=== PATIENT | female | born 1990 | race Caucasian/White ===

== ENCOUNTER 2018-09-08 02:21 | Emergency (ER) | payer OTHER ==
--- NOTE | 2018-09-08 02:32 | EDPHY ---
H & P Stated Complaint: Throat swelling on drive to OR, increasing trouble swallowing Time Seen by Provider: 09/08/18 02:32 HPI/ROS: HPI CHIEF COMPLAINT: Tongue swelling, throat swelling. HISTORY OF PRESENT ILLNESS: Patient is a 27-year-old female, otherwise healthy , presents emergency room stating an hour ago she was sleeping and felt as if her tongue was swollen throat was swollen. She denies any trouble breathing. She does report that her tongue feels big and causes or difficulty swallowing. She reports she had this 5 days ago. It went away on its own. She is unsure what is causing it. She arrives to the emergency room in no acute distress. Denies any trouble breathing. On exam her vital signs are stable, additionally there is no evidence of tongue swelling or posterior pharynx swelling. No stridor. No trismus. Past Medical History: Denies significant medical history Past Surgical History: Denies significant surgical history Social History: Denies drugs alcohol tobacco. Visiting from [place]. Family History: Noncontributory ROS REVIEW OF SYSTEMS: 10 Systems were reviewed and negative with the exception of the elements mentioned in the history of present illness. Exam Constitutional triage nursing summary reviewed, vital signs reviewed, awake/ alert. Eyes normal conjunctivae and sclera, EOMI, PERRLA. HENT posterior pharynx unremarkable, no significant swelling, no tongue swelling, no sublingual swelling, no signs of [employer] or RPA. No stridor. No change in phonation. moist mucus membranes, no epistaxis, neck supple/ no meningismus, no raccoon eyes. Respiratory clear to auscultation bilaterally, normal breath sounds, no respiratory distress, no wheezing. Cardiovascular rate normal, regular rhythm, no murmur, no edema, distal pulses normal. Gastrointestinal soft, non-tender, no rebound, no guarding, normal bowel sounds, no distension, no pulsatile mass. Genitourinary no CVA tenderness. Musculoskeletal no midline vertebral tenderness, full range of motion, no calf swelling, no tenderness of extremities, no meningismus, good pulses, neurovascularly intact. Skin pink, warm, & dry, no rash, skin atraumatic. Neurologic awake, alert and oriented x 3, AAOx3, moves all 4 extremities equally, motor intact, sensory intact, CN II-XII intact, normal cerebellar, normal vision, normal speech. Psychiatric normal mood/affect. Heme/Lymph/Immune no lymphadenopathy. Differential Diagnosis: Includes but is not limited to and in no particular order allergic reaction, angioedema, anxiety. Medical Decision Making: Plan for this patient IV establishment with IV Benadryl, IV Decadron, IV Pepcid, close monitoring. On exam I do not appreciate any significant oropharynx or posterior pharynx swelling. No stridor. Re-evaluation: 0519: Patient re-evaluated this time resting comfortably. No acute distress. Able swallow appropriately. No stridor. No trouble breathing. Patient is feeling much better. Goes no visible significant swelling on exam. No stridor no drooling. We discussed return precautions return to the emergency room if worsening symptoms questions or concerns. Additionally recommend following up with ENT. Source: Patient - Personal History LMP (Females 10-55): 22-28 Days Ago Current Tetanus Diphtheria and Acellular Pertussis (TDAP): Yes - Medical/Surgical History Hx Asthma: No Hx Chronic Respiratory Disease: No Hx Diabetes: No Hx Cardiac Disease: No Hx Renal Disease: No Hx Cirrhosis: No Hx Alcoholism: No Hx HIV/AIDS: No Hx Splenectomy or Spleen Trauma: No Other PMH: Denies - Social History Smoking Status: Never smoked Constitutional: Initial Vital Signs Temperature (C) 36.9 C 09/08/18 02:26 Heart Rate 93 09/08/18 02:26 Respiratory Rate 18 09/08/18 02:26 Blood Pressure 154/93 H 09/08/18 02:26 O2 Sat (%) 97 09/08/18 02:26 O2 Delivery Mode Room Air Allergies/Adverse Reactions: No Known Allergies Allergy (Unverified 09/08/18 02:28) Home Medications: Medication Instructions Recorded EPINEPHrine [Epipen 0.3 MG] 0.3 mg IM ONCE #2 syr 09/08/18 Famotidine [Pepcid 20 MG (*)] 20 mg PO BID #6 tab 09/08/18 diphenhydrAMINE [Benadryl 25 MG 25 mg PO BID #6 tab 09/08/18 (*)] predniSONE 60 mg PO DAILY #9 tab 09/08/18 Medical Decision Making - Data Points Laboratory Results: Laboratory Results 09/08/18 02:31 09/08/18 02:31 09/08/18 09/08/18 02:31 02:31 WBC 6.58 10^3/uL 10^3/uL (3.80-9.50) RBC 4.52 10^6/uL 10^6/uL (4.18-5.33) Hgb 15.1 g/dL g/dL (12.6-16.3) Hct 43.4 % % (38.0-47.0) MCV 96.0 fL fL (81.5-99.8) MCH 33.4 pg pg (27.9-34.1) MCHC 34.8 g/dL g/dL (32.4-36.7) RDW 11.2 % L % (11.5-15.2) Plt Count 197 10^3/uL 10^3/uL (150-400) MPV 10.4 fL fL (8.7-11.7) Neut % (Auto) 43.7 % % (39.3-74.2) Lymph % (Auto) 46.4 % H % (15.0-45.0) Barber % (Auto) 6.8 % % (4.5-13.0) Eos % (Auto) 2.3 % % (0.6-7.6) Baso % (Auto) 0.6 % % (0.3-1.7) Nucleat RBC Rel Count 0.0 % % (0.0-0.2) Absolute Neuts (auto) 2.88 10^3/uL 10^3/uL (1.70-6.50) Absolute Lymphs (auto) 3.05 10^3/uL H 10^3/uL (1.00-3.00) Absolute Monos (auto) 0.45 10^3/uL 10^3/uL (0.30-0.80) Absolute Eos (auto) 0.15 10^3/uL 10^3/uL (0.03-0.40) Absolute Basos (auto) 0.04 10^3/uL 10^3/uL (0.02-0.10) Absolute Nucleated RBC 0.00 10^3/uL 10^3/uL (0-0.01) Immature Gran % 0.2 % % (0.0-1.1) Immature Gran # 0.01 10^3/uL 10^3/uL (0.00-0.10) Sodium 140 mEq/L mEq/L (135-145) Potassium 3.6 mEq/L mEq/L (3.5-5.2) Chloride 102 mEq/L mEq/L (97-110) Carbon Dioxide 25 mEq/l mEq/l (22-31) Anion Gap 13 mEq/L mEq/L (6-14) BUN 10 mg/dL mg/dL (7-23) Creatinine 0.5 mg/dL L mg/dL (0.6-1.0) Estimated GFR > 60 Glucose 88 mg/dL mg/dL (70-100) Calcium 9.9 mg/dL mg/dL (8.5-10.4) Medications Given: Discontinued Medications Dexamethasone (Decadron Injection) 10 mg IVP EDNOW ONE Stop: 09/08/18 02:37 Last Admin: 09/08/18 02:39 Dose: 10 mg Diphenhydramine HCl (Benadryl Injection) 50 mg IVP EDNOW ONE Stop: 09/08/18 02:37 Last Admin: 09/08/18 02:39 Dose: 50 mg Famotidine (Pepcid) 20 mg IVP EDNOW ONE Stop: 09/08/18 02:37 Last Admin: 09/08/18 02:39 Dose: 20 mg Sodium Chloride (Ns) 1,000 mls @ 0 mls/hr IV EDNOW ONE; Wide Open PRN Reason: Protocol Stop: 09/08/18 02:37 Last Admin: 09/08/18 02:39 Dose: 1,000 mls Departure - Departure Disposition: Home, Routine, Self-Care Clinical Impression: Allergic reaction Condition: Good Instructions: Anaphylaxis (ED), Allergies (ED) Additional Instructions: 1. Return to the emergency room if worsening symptoms 2. Return emergency room trouble swallowing, trouble breathing, not doing well. Referrals: NONE *PRIMARY CARE P,. [Primary Care Provider] - As per Instructions [facility],. [Clinic] - As per Instructions Renay Hatfield MD [Medical Doctor] - As per Instructions Prescriptions: diphenhydrAMINE [Benadryl 25 MG (*)] 25 mg PO BID #6 tab EPINEPHrine [Epipen 0.3 MG] 0.3 mg IM ONCE #2 syr Famotidine [Pepcid 20 MG (*)] 20 mg PO BID #6 tab predniSONE 60 mg PO DAILY #9 tab
[2018-09-08] MEDS ORDERED: DEXAMETHASONE 10 MG/ML VIAL IVP ONE (02:36)
[2018-09-08] MEDS ORDERED: FAMOTIDINE 20 MG/2 ML SDV IVP ONE (02:36)
[2018-09-08] MEDS ORDERED: NS 1,000 ML IV ONE (02:36)
[2018-09-08 02:45] LABS: PLATELET COUNT 197 10^3/uL (150-400)
[2018-09-08 05:55] VITALS: BP 104/62
== END 2018-09-08 05:48 | disposition home or self-care (01) ==
DX: T78.40XA Allergy, unspecified, initial encounter (principal)
CPT/HCPCS: 96374; J1100; J1200

== ENCOUNTER 2018-09-11 12:40 | Emergency (ER) | payer OTHER | END 2018-09-11 15:03 | disposition home or self-care (01) ==